=== PATIENT | female | born 1985 | race Caucasian/White ===

== ENCOUNTER → 2016-11-10 | Outpatient (CLI) | payer OTHER ==
--- NOTE | 2016-11-10 13:55 | REPMRS ---
Patient History The patient states she has not had a clinical breast exam in over a year. Family history of breast cancer in mother at age 32, breast cancer in maternal aunt at age 49, ovarian cancer in paternal grandmother at age 40, and breast cancer in maternal grandmother at age 45. Patient is right now. Digital Mammo Screening Bilat: November 10, 2016 - Exam #: [id number] Bilateral CC and MLO view(s) were taken. Technologist: Bianca Mccoy Technologist FINDINGS: There are scattered fibroglandular densities. Slightly assymetric markings, left greater than right. Patient is lactating. There is no evidence of dominant mass, architectural distortion, or clustered microcalcification typical of malignancy. ASSESSMENT: BI-RADS/ACR category 2 mammogram. Benign finding(s). Recommendation Routine screening mammogram of both breasts in 1 year in this patient with strong family history of premenopausal breast cancer. This mammogram was interpreted with the aid of an FDA-approved computer-aided dectection system. Electronically Signed By: Nelson Louis MD 11/10/16 [id number]
== END ==
LOC: M RAD 10:50
PROVIDERS: ATTEND Physician Assistant Medical
DX: Z12.31 Encounter for screening mammogram for malignant neoplasm of breast (principal)

== ENCOUNTER 2018-03-11 10:43 | Outpatient (CLI) | payer OTHER ==
[2018-03-11] MEDS: FLUCONAZOLE 50MG TABLET PO (12:16)
[2018-03-11 12:22] LABS: HEMATOCRIT 34.9 % (36.0-47.0); HEMOGLOBIN 11.8 g/dl (12.0-15.5); MEAN CORPUSCULAR HEMOGLOBIN 30.6 pg (27.0-33.0); MEAN CORPUSCULAR HGB CONC 33.8 g/dl (32.0-36.5); MEAN CORPUSCULAR VOLUME 90.4 fl (80.0-96.0); PLATELET COUNT, AUTOMATED 233 10^3/uL (150-450); RED BLOOD COUNT 3.86 10^6/uL (4.00-5.40); RED CELL DISTRIBUTION WIDTH 13.2 % (11.5-14.5); WHITE BLOOD COUNT 9.4 10^3/uL (4.0-10.0)
[2018-03-11 12:46] LABS: ALBUMIN/GLOBULIN RATIO 0.86 (1.00-1.93); ALKALINE PHOSPHATASE 63 U/L (45-117); ALT/SGPT 10 U/L (12-78); ANION GAP 9 MEQ/L (8-16); AST/SGOT 10 U/L (7-37); BILIRUBIN,TOTAL 0.3 MG/DL (0.2-1.0); BLOOD UREA NITROGEN 6 MG/DL (7-18); CALCIUM LEVEL 8.7 MG/DL (8.5-10.1); CARBON DIOXIDE LEVEL 26 MEQ/L (21-32); CHLORIDE LEVEL 103 MEQ/L (98-107); CREATININE FOR GFR 0.58 MG/DL (0.55-1.30); GLOMERULAR FILTRATION RATE > 60.0 (>60); GLUCOSE, FASTING 74 MG/DL (70-100); POTASSIUM SERUM 4.5 MEQ/L (3.5-5.1); SODIUM LEVEL 138 MEQ/L (136-145); TOTAL PROTEIN 6.5 GM/DL (6.4-8.2)
== END 2018-03-11 12:20 | disposition home or self-care (01) ==
LOC: M LDO 10:43
DX: O26.892 Other specified pregnancy related conditions, second trimester (principal); Z3A.20 20 weeks gestation of pregnancy; O99.212 Obesity complicating pregnancy, second trimester; O99.342 Other mental disorders complicating pregnancy, second trimester; F31.9 Bipolar disorder, unspecified; F41.9 Anxiety disorder, unspecified
CPT/HCPCS: 76811

== ENCOUNTER 2018-07-18 16:14 | Outpatient (CLI) | payer OTHER ==
[~2018-07-18] VITALS: Ht 167.6 cm; Wt 101.1 kg
[2018-07-18 16:49] VITALS: BP 132/79
[2018-07-18] MEDS ORDERED: ZOLO100T PO (17:40)
--- NOTE | 2018-07-18 18:04 | IPNPDOC ---
Text Note Date of Service The patient was seen on 07/18/18. NOTE 33 yo at 38+4 weeks presented to L&D with the complaint of decreased movement and intermittent abdominal cramping and contractions. She reports feeling the baby move, just not as much as usual. She denies any vaginal bleeding or leakage of fluid. Chaperoned by L&D RN Vitals - VSS, afebrile, normotensive, non tachycardic General - AAOX3, sitting up in bed, NAD Abdomen - Gravid uterus, no fundal tenderness. No abdominal tenderness. Cervix - FT/thick/high FHR: BL 145, moderate variability, +accels, questionable variable decel, overall reassuring tracing and reactive., Bedside TAUS - SIUP in cephalic presentation. BPP performed due to questionable variable decel and 01/25. AFTAB 10.2cm. Patient felt movement in triage. The risk of in one week after a reactive NST and 88 BPP is approximately 1.02/1000 and 0.6-0.01/1000 respectively. Patient also not in labor. Discharged home with return precautions. She has a follow up appointment scheduled for Tuesday. Return to care sooner for bleeding, leakage of fluid, worsening contractions, or decreased movement. All patient questions answered. DO SILAS Massey,Natty, I+O VS, Natty, I+O Vital Signs Date Time Temp Pulse Resp B/P (MAP) Pulse Ox O2 Delivery O2 Flow Rate FiO2 07/18/18 16:49 98.0 86 18 132/79 (96) OSIEL RIOS DO Jul 18, 2018 18:04
== END 2018-07-18 18:20 | disposition home or self-care (01) ==
LOC: M LDO 16:14
PROVIDERS: ATTEND Obstetrics & Gynecology
DX: O36.8130 Decreased fetal movements, third trimester, not applicable or unspecified (principal); Z3A.38 38 weeks gestation of pregnancy
CPT/HCPCS: 59025; G0378; G0463

== ENCOUNTER 2018-07-26 11:42 | Inpatient (IN) | payer OTHER ==
[~2018-07-26] VITALS: Ht 167.6 cm; Wt 103.5 kg
[2018-07-26] VITALS (38 sets, daily range): BP systolic 122–152; BP diastolic 57–85
[~2018-07-26 11:42] MED LIST: ZOLO100T PO
[2018-07-26] MEDS ORDERED: MAPA500T2 PO (12:08)
[2018-07-26] MEDS ORDERED: LACTATED RINGER'S 1000 ML IV STA (12:56)
--- NOTE | 2018-07-26 13:11 | HPEPDOC ---
Obstetrical History & Physical General Date of Admission Jul 26, 2018 at 12:51 History of Present Illness 32 y/o at 39+5 with painful reg ctx's. Pos FM. No LOF/VB. Uncompl'd preg. Chief Complaint: Contractions, term Information Provided By: Patient Care Care: Good Care Dating Final EDC by: LMP, 2nd trimester (US) Past Medical History Past Obstetrical History : Past Obstetrical History: Multigravida Type of Delivery: Spontaneous Vaginal Del. 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 (x2) Past Medical History Medical History bipolar depression, anxiety, PCOS, obesity Surgical History: Dilatation and Curettage, Gallbladder, Tonsilectomy, Other (bilat condylectomy, kidney stone removal) Social History Marital Status: Family situation: Spouse/partner home Psychosocial History: No pertinent psych hx (does well on Zoloft 200 mg qd) * Smoker: non-smoker Alcohol: Denies Drugs: denies Abuse Violence Screening Have you been hit/kicked/slapp: No Have you been sexually assault: No Imunizations Tdap status: current Influenza Status: current Allergies Coded Allergies: Acetaminophen (Verified Adverse Reaction, Intermediate, VOMITING, 03/11/18) Codeine (Verified Adverse Reaction, Intermediate, VOMITING, 03/11/18) Hydrocodone (Verified Adverse Reaction, Intermediate, VOMITING, 03/11/18) Medications Scheduled Sertraline Hcl (Zoloft) 100 Mg Tab, 200 MG PO QHS Miscellaneous Medications Acetaminophen (Mapap) 500 Mg Tab, 1,000 MG PO Physical Examination Physical Examination GENERAL: Alert and oriented times three. ABDOMEN: Gravid and non-tender to touch. FETUS: Is vertex (VTX) by sterile vaginal examination (SVE), 90/-1/vtx well applied EXTREMITIES: No edema. Vital Signs/I&O Vital Signs Date Time Temp Pulse Resp B/P (MAP) Pulse Ox O2 Delivery O2 Flow Rate FiO2 07/26/18 12:05 98.2 76 18 142/85 (104) Laboratory Data [facility] Laboratory Tests 2 07/26/18 12:58: Serology Scanned Report Hepatitis B Testing Urine Culture: No Growth Pertinent Laboratoy Data Blood Type: B+ RBC Antibody Screen: Negative HIV: Negative Hepatitis B: Negative Hepatitis C: Unknown Rapid Plasma Reagin: Nonreactive Rubella: Immune Varicella: Immune Chlamydia/Gonorrhea: Negative Group B Streptococcus: Negative Quad Screen Test: Declined Cystic Fibrosis: Declined Glucose Tolerance Test: 138 Anatomy Ultrasound Placenta Location: Anterior Normal Anatomy: Yes Placenta Previa: No Assessment Variability: Moderate Accelerations: Positive Decelerations: None Tocometer Contractions: Yes Frequency: regular Duration: greater than 60 seconds Strength: palpated as moderate Assessment/Plan Assessment active labor Plan Admit and orient. Flight Follower and consent. Diet: clear Group B Streptococcus (GBS) neg Labs and intravenous (IV) per unit protocol. Counseled on possible Pitocin need Lactated Ringers (LR): Bolus 1000 mL before epidural, then at 125 mL/hr. Anticipate normal spontaneous delivery () C-S as appropriate. Sessions MD CASTELLANO,NICHELLE Montague MD Jul 26, 2018 13:11
[2018-07-26 13:27] LABS: HEMATOCRIT 34.6 % (36.0-47.0); HEMOGLOBIN 11.7 g/dl (12.0-15.5); MEAN CORPUSCULAR HEMOGLOBIN 29.9 pg (27.0-33.0); MEAN CORPUSCULAR HGB CONC 33.8 g/dl (32.0-36.5); MEAN CORPUSCULAR VOLUME 88.5 fl (80.0-96.0); PLATELET COUNT, AUTOMATED 205 10^3/uL (150-450); RED BLOOD COUNT 3.91 10^6/uL (4.00-5.40)
[2018-07-26] MEDS ORDERED: FENTANYL 2MCG/ML ROPIVACAINE 0.2% IN 0.9% NACL 100ML IVBAG As Ordered ONE (13:39)
[2018-07-26] MEDS: LR 1,000 ML IV SCH ×2 (14:08→16:58)
[2018-07-26] MEDS ORDERED: ePHEDrine SULFATE 25 MG/5 ML(5MG/ML) SYRINGE IV PRN (15:15)
[2018-07-26] MEDS ORDERED: ONDANSETRON 4MG/2ML VIAL (J2405) IV PRN (15:15)
[2018-07-26] MEDS ORDERED: FENTANYL/ROPIVACAINE/NACL BAG 100 ML EPIDURAL SCH (15:15)
[2018-07-26] MEDS ORDERED: EPIDURAL/PCA KEYS XX PRN (15:15)
[2018-07-26] MEDS ORDERED: NALOXONE INJ 0.4 MG/1 ML VIAL (J2310) IV PRN (15:15)
[2018-07-26] MEDS ORDERED: EPIDURAL COMMENT XX SCH (15:15)
[2018-07-26] MEDS ORDERED: LACTATED RINGER'S 1000 ML IV PRN (15:15)
[2018-07-26] MEDS ORDERED: REFRIGERATOR IV KEYS XX PRN (15:15)
[2018-07-26] MEDS ORDERED: diphenhydrAMINE INJ 50MG/ML VIAL (J1200) IV PRN (15:15)
--- NOTE | 2018-07-26 15:35 | IPNPDOC ---
Text Note Date of Service The patient was seen on 07/26/18. NOTE Now feeling well s/p epidural FHT Cat 1 Cx /0, minimal change from admission AROM with mec noted, will notify NICU Will watch FHT closely and recheck in ~2-3 hrs, sooner prn Sessions VS,Natty, I+O VSNatty, I+O Laboratory Tests 07/26/18 13:12 Red Blood Count 3.91 L, Mean Corpuscular Volume 88.5, Mean Corpuscular Hemo globin 29.9, Mean Corpuscular Hemoglobin Concent 33.8, Red Cell Distribution Width 14.2 Vital Signs Date Time Temp Pulse Resp B/P (MAP) Pulse Ox O2 Delivery O2 Flow Rate FiO2 07/26/18 14:54 79 128/62 (84) 07/26/18 14:49 97.4 18 SESSIONS,NICHELLE Montague MD Jul 26, 2018 15:35
[2018-07-26] MEDS ORDERED: ACETAMINOPHEN 500 MG TAB PO ONE (16:45)
[2018-07-26] MEDS ORDERED: OXYTOCIN 30 UNITS IN 0.9% NaCl 500ML IV BAG (J2590) As Ordered ONE (17:21)
[2018-07-26] MEDS ORDERED: MEASLES,MUMPS,RUBELLA VACCINE INJ (MMR-II) (90707) SC SCH (18:15)
[2018-07-26] MEDS ORDERED: RHOGAM 300 MCG (1500 IU) INJ (J2790) IM SCH (18:15)
[2018-07-26] MEDS ORDERED: METOCLOPRAMIDE INJ 10MG/2ML VIAL (J2765) IV PRN (18:15)
[2018-07-26] MEDS ORDERED: ACETAMINOPHEN TAB 650MG DOSE (2X325MG) PO PRN (18:15)
[2018-07-26] MEDS ORDERED: DIBUCAINE 1% OINTMENT 30GM TOP PRN (18:15)
--- NOTE | 2018-07-26 18:17 | DNPDOC ---
[facility] Delivery Note Delivery Note DATE OF DELIVERY: [id number]@1750 PREDELIVERY DIAGNOSIS: 39 5/7 weeks' gestation and labor. POST DELIVERY DIAGNOSIS: Delivered. PROCEDURE: Spontaneous vaginal delivery ANALYSIS INTERNSHIP: Dr. Castellano ANESTHESIA: epidural ESTIMATED BLOOD LOSS: 200 mL. FINDINGS: 7 pound 12 ounce female , Score 8/9 DELIVERY SUMMARY: signif pressure, C/C/+2, adeq pelvis, NICU team called for mec, could not stop pushing, pushed only a few times, vtx w/o delay followed by ant/post shoulders. To abd in good shape. Cord C/C by FOB. Cord blood. Placenta intact with small amt massage, fundus firm, pit going 999. Small lac on post vag at 7 o'clock closed with figure of eight 3-0 vicryl after removing a small sebaceous cyst. Good cosmesis/hemostasis. Uncomplicated. Sessions MD CASTELLANO,NICHELLE Montague MD Jul 26, 2018 18:17
[2018-07-26] MEDS ORDERED: OXYTOCIN DRIP 30 UNITS in APPROPRIATE DILUENT 1 EA IV SCH (18:30)
[2018-07-26] MEDS ORDERED: SERTRALINE 100 MG TAB PO SCH (21:00)
[2018-07-26] MEDS: DOCUSATE SODIUM 100 MG CAP PO SCH (21:46)
[2018-07-27] MEDS: IBUPROFEN 800 MG TAB PO PRN ×2 (05:42→16:46)
[2018-07-27 06:00] VITALS: BP 140/71
[2018-07-27] MEDS ORDERED: PRENATAL VITAMINS CHEWABLE TABLET PO SCH (09:00)
[2018-07-27] MEDS: DOCUSATE SODIUM 100 MG CAP PO SCH (09:02)
--- NOTE | 2018-07-27 09:18 | IPNPDOC ---
Text Note Date of Service The patient was seen on 07/27/18. NOTE PPD1 States feeling well, pain controlled with prescribed meds. Baby bonding and feeding well. No heavy VB. Lochia slowing. Ambulating and voiding well. Tolerating PO without issues. VSSAF NAD A&O RRR CTAB LE no C/C/E Ut at U, firm a/p: Doing well. Cont routine care. D/C today, to boarding if baby not d/c'd. Sessions Natty LESTER, I+O VSNatty I+O Laboratory Tests 07/26/18 13:12 Red Blood Count 3.91 L, Mean Corpuscular Volume 88.5, Mean Corpuscular Hemoglobin 29.9, Mean Corpuscular Hemoglobin Concent 33.8, Red Cell Distribution Width 14.2 Vital Signs Date Time Temp Pulse Resp B/P (MAP) Pulse Ox O2 Delivery O2 Flow Rate FiO2 07/27/18 06:00 97.0 81 17 140/71 (94) I&O- Last 24 Hours up to 6 AM 07/27/18 06:00 Intake Total 2056 ml Output Total 675 ml Balance 1381 ml SESSIONS,NICHELLE Montague MD Jul 27, 2018 09:18
[2018-07-27] MEDS ORDERED: IBUP-1114 PO (09:26)
[2018-07-27] MEDS ORDERED: COLA100C5 PO (09:26)
[2018-07-27] MEDS ORDERED: PRENTAB9 PO (09:26)
[2018-07-27] MEDS ORDERED: MAPA500T2 PO (09:28)
--- NOTE | 2018-07-27 11:48 | IPN ---
DATE: 07/26/2018 This lady is a 33-year-old, 4, now para 2 admitted in active labor at 39 weeks and 5 days with contractions who had a spontaneous vaginal delivery of a female infant, 7 pounds 12 ounces. of 8 and 9 at one and five minutes respectfully with epidural in place. Her risk factors is she has bipolar, depression, PCOS, and obesity. On her first day, we discussed phlebitis, cystitis, mastitis, endometritis, cellulitis; diet, exercise and pain management; perineal, breast and wound care. She will discuss contraception at her 6-week visit. This morning, her vital signs are blood pressure 140/71, respirations 17, pulse 81, and temperature 97.0. Her admitting was hemoglobin 11.7, hematocrit 34.6 and platelets were 205. The rest examination is unremarkable. She is normocephalic, atraumatic. Neck: Full range of motion. Pupils equal and reactive to light. Distal pulses symmetric. No evidence of deep vein thrombosis (DVT) or superficial phlebitis. Chest is clear bilaterally at bases. No wheezes or rhonchi. No costovertebral angle (CVA) tenderness. Abdomen: Soft. Uterus is two below. Lochia is moderate. Perineum is intact. Four quadrant bowel sounds are noted. The rest of the examination is unremarkable. The patient is doing well, voiding and passing gas. Anticipate discharge with medications tomorrow morning.
== END 2018-07-27 17:30 | disposition home or self-care (01) | DRG 768 ==
LOC: M LDO 11:42 → M LDI 12:51 → M OBS 20:38
PROVIDERS: ADMIT Obstetrics & Gynecology; ATTEND Obstetrics & Gynecology
PROC: 10E0XZZ Delivery of Products of Conception, External Approach (ICD-10-PCS; principal; 2018-07-26)
PROC: 0UBGXZZ Excision of Vagina, External Approach (ICD-10-PCS; 2018-07-26)
PROC: 0HQ9XZZ Repair Perineum Skin, External Approach (ICD-10-PCS; 2018-07-26)
DX: O99.214 Obesity complicating childbirth (principal); Z37.0 Single live birth; E66.9 Obesity, unspecified; Z3A.39 39 weeks gestation of pregnancy; O70.0 First degree perineal laceration during delivery; N94.89 Other specified conditions associated with female genital organs and menstrual cycle; O99.89 Other specified diseases and conditions complicating pregnancy, childbirth and the puerperium; Z88.5 Allergy status to narcotic agent; Z88.8 Allergy status to other drugs, medicaments and biological substances; Z79.899 Other long term (current) drug therapy; F31.9 Bipolar disorder, unspecified; O99.344 Other mental disorders complicating childbirth; O26.893 Other specified pregnancy related conditions, third trimester

== ENCOUNTER 2018-08-02 13:03 | Emergency (ER) | payer OTHER ==
[~2018-08-02] VITALS: Ht 167.6 cm; Wt 90.9 kg
[~2018-08-02 13:03] MED LIST changes: +COLA100C5 PO; +IBUP-1114 PO; +MAPA500T2 PO; +PRENTAB9 PO
[2018-08-02] MEDS ORDERED: FLON1SPR NARES (14:36)
[2018-08-02 14:45] VITALS: BP 124/82
== END 2018-08-02 14:46 | disposition home or self-care (01) ==
LOC: M ED 13:03
DX: B34.9 Viral infection, unspecified (principal); H65.01 Acute serous otitis media, right ear; R05 Cough; J02.9 Acute pharyngitis, unspecified; F31.9 Bipolar disorder, unspecified; F41.9 Anxiety disorder, unspecified; Z88.5 Allergy status to narcotic agent; Z79.899 Other long term (current) drug therapy